=== PATIENT | male | born 1960 | race Caucasian/White ===

== ENCOUNTER → 2024-07-09 | Outpatient (CLI) | payer MEDICARE, OTHER ==
[2024-07-09 17:39] LABS: BASOPHILS ABSOLUTE AUTO 0.11 K/mm3 (0.00-0.23); BASOPHILS PERCENT AUTO 1 % (0-2); EOSINOPHILS ABSOLUTE AUTO 0.45 K/mm3 (0.00-0.68); EOSINOPHILS PERCENT AUTO 5 % (0-6); Hematocrit 38.7 % (37.0-53.0); Hemoglobin 12.5 g/dL (13.5-17.5); IMMATURE GRAN ABSOLUTE AUTO 0.03 K/mm3 (0.00-0.10); IMMATURE GRAN PERCENT AUTO 0 % (0-1); LYMPHOCYTES ABSOLUTE AUTO 1.76 K/mm3 (0.84-5.20); LYMPHOCYTES PERCENT AUTO 18 % (21-46); MONOCYTES ABSOLUTE AUTO 0.77 K/mm3 (0.16-1.47); MONOCYTES PERCENT AUTO 8 % (4-13); Mean Corpuscular HGB 30.5 pg (26.0-34.0); Mean Corpuscular HGB Conc 32.3 g/dL (31.5-36.5); Mean Corpuscular Volume 94 fL (80-100); Mean Platelet Volume 11.2 fL (9.1-12.4); NEUTROPHILS ABSOLUTE AUTO 6.85 K/mm3 (1.96-9.15); NEUTROPHILS PERCENT AUTO 69 % (41-73); Platelet Count 289 K/mm3 (150-400); RDW Coefficient Variation 13.2 % (11.7-14.2); RDW Standard Deviation 45.9 fL (35.1-46.3); White Blood Cell Count 9.97 K/mm3 (4.00-11.30)
[2024-07-09 18:38] LABS: Alanine Aminotransfer (ALT/SGP 37 U/L (12-78); Albumin, Blood 3.7 g/dL (3.4-5.0); Albumin/Globulin Ratio 0.9 (0.8-1.8); Alk Phos 207 U/L (50-136); Anion Gap 11 mmol/L (3-11); Aspartate Aminotrans (AST/SGOT 21 U/L (12-37); Bilirubin, Total 0.3 mg/dL (0.1-1.0); Blood Urea Nitrogen 38 mg/dL (8-24); CO2, Blood 20 mmol/L (21-32); Calcium, Blood 8.6 mg/dL (8.5-10.1); Chloride, Blood 111 mmol/L (98-108); Cholesterol 122 mg/dL (50-200); Creatinine, Blood 1.65 mg/dL (0.60-1.20); Glomerular Filtration Rate 46 (60-); Glucose, Blood 108 mg/dL (70-99); HDL Cholesterol 41 mg/dL (>39); LDL/HDL RATIO 1.3; Low Density Lipoprotein Chol 54 mg/dL (0-110); PSA, %Free 19.9 %; PSA, Free 0.286 ng/mL; Potassium, Blood 4.5 mmol/L (3.5-5.5); Sodium, Blood 137 mmol/L (136-145); Total Protein, Blood 7.7 g/dL (6.4-8.2); Triglycerides 135 mg/dL (30-160); Very Low Density Lipoprot Chol 27 mg/dL (6-32)
== END | disposition home or self-care (01) ==
LOC: LAB 14:30 → LAB SHORT 14:30 → EDSTATUS 07-09 14:20 → LAB FUT 07-09 14:20
PROVIDERS: Nurse Practitioner Family
DX: I10 Essential (primary) hypertension (principal); E78.2 Mixed hyperlipidemia; N40.0 Benign prostatic hyperplasia without lower urinary tract symptoms
CPT/HCPCS: 80053; 80061; 84153; 84154; 85025

== ENCOUNTER → 2024-08-21 | Outpatient (CLI) | payer MEDICARE, OTHER ==
[~2024-08-21] MED LIST: ATOR10 PO; BREZTRI AEROS10.7 GM INH; CEFP200 PO; FOLI1 PO; FURO20 PO; ISOSORBIDE MONO10 MG PO; ISOSORBIDE MONO30 MG PO; METO25ER PO; OMEP20ER PO; OXCARBAZEPINE150 M1 PO; QUET25 PO; VISBIOME 112.51 EACH PO
[2024-08-21 14:09] LABS: BASOPHILS PERCENT AUTO 1 % (0-2); EOSINOPHILS ABSOLUTE AUTO 0.02 K/mm3 (0.00-0.68); EOSINOPHILS PERCENT AUTO 0 % (0-6); Hematocrit 34.1 % (37.0-53.0); Hemoglobin 11.2 g/dL (13.5-17.5); IMMATURE GRAN ABSOLUTE AUTO 0.12 K/mm3 (0.00-0.10); IMMATURE GRAN PERCENT AUTO 1 % (0-1); LYMPHOCYTES ABSOLUTE AUTO 0.79 K/mm3 (0.84-5.20); LYMPHOCYTES PERCENT AUTO 4 % (21-46); MONOCYTES ABSOLUTE AUTO 1.12 K/mm3 (0.16-1.47); MONOCYTES PERCENT AUTO 6 % (4-13); Mean Corpuscular HGB 30.6 pg (26.0-34.0); Mean Corpuscular HGB Conc 32.8 g/dL (31.5-36.5); Mean Corpuscular Volume 93 fL (80-100); Mean Platelet Volume 10.5 fL (9.1-12.4); NEUTROPHILS ABSOLUTE AUTO 17.02 K/mm3 (1.96-9.15); NEUTROPHILS PERCENT AUTO 89 % (41-73); Platelet Count 326 K/mm3 (150-400); RDW Coefficient Variation 13.5 % (11.7-14.2); RDW Standard Deviation 45.6 fL (35.1-46.3); Red Blood Cell Count 3.66 M/mm3 (4.30-5.90); White Blood Cell Count 19.17 K/mm3 (4.00-11.30)
[2024-08-21 14:23] LABS: Albumin/Globulin Ratio 0.6 (0.8-1.8); Bilirubin, Total 0.4 mg/dL (0.1-1.0); Bun/Creatinine Ratio 15.1 (12.0-20.0); Calcium, Blood 9.3 mg/dL (8.5-10.1); Creatinine, Blood 4.31 mg/dL (0.60-1.20); Globulin, Blood 5.2 g/dL (2.2-4.0); Potassium, Blood 4.8 mmol/L (3.5-5.5); Total Protein, Blood 8.2 g/dL (6.4-8.2)
== END | disposition home or self-care (01) ==
LOC: LAB SHORT 14:05 → LAB 14:05
PROVIDERS: Chiropractor
DX: N39.0 Urinary tract infection, site not specified (principal); R07.81 Pleurodynia; R53.1 Weakness
CPT/HCPCS: 80053; 83605; 84484; 85025

== ENCOUNTER 2024-09-14 20:10 | Inpatient (IN) | payer MEDICARE, OTHER ==
[~2024-09-14] VITALS: Ht 180.3 cm; Wt 79.6 kg
[2024-09-14] MEDS ORDERED: NS 1,000 ML IV ONE (20:41)
[2024-09-14] MEDS ORDERED: NS 1,000 ML IV SCH ×2 (20:50→21:50)
[2024-09-14 20:54] LABS: Hematocrit 32.7 % (37.0-53.0); Hemoglobin 10.1 g/dL (13.5-17.5); Mean Corpuscular HGB Conc 30.9 g/dL (31.5-36.5); Mean Corpuscular Volume 95 fL (80-100); NRBC ABSOLUTE 0.00 K/mm3 (0.00-0.02); NRBC Auto 0.0 /100 WBC (0.0-0.2); Platelet Count 228 K/mm3 (150-400); RDW Coefficient Variation 14.2 % (11.7-14.2); RDW Standard Deviation 49.6 fL (35.1-46.3)
[2024-09-14 21:18] LABS: Alanine Aminotransfer (ALT/SGP 90.0 U/L (12-78); Albumin, Blood 2.8 g/dL (3.4-5.0); Albumin/Globulin Ratio 0.7 (0.8-1.8); Anion Gap 10.0 mmol/L (3-11); Aspartate Aminotrans (AST/SGOT 166.0 U/L (12-37); Bilirubin, Total 0.5 mg/dL (0.1-1.0); Blood Urea Nitrogen 48.0 mg/dL (8-24); CO2, Blood 18.0 mmol/L (21-32); Calcium, Blood 7.8 mg/dL (8.5-10.1); Chloride, Blood 119.0 mmol/L (98-108); Creatinine, Blood 2.61 mg/dL (0.60-1.20); Globulin, Blood 4.1 g/dL (2.2-4.0); Glucose, Blood 85.0 mg/dL (70-99); Potassium, Blood 4.9 mmol/L (3.5-5.5); Sodium, Blood 142.0 mmol/L (136-145); Total Protein, Blood 6.9 g/dL (6.4-8.2)
[2024-09-14 21:55] LABS: BAND PERCENT MAN 12 % (0-8); BASOPHILS ABSOLUTE MAN 0.00 K/mm3 (0.00-0.23); BASOPHILS PERCENT MAN 0 % (0-2); EOSINOPHILS ABSOLUTE MAN 0.00 K/mm3 (0.00-0.68); EOSINOPHILS PERCENT MAN 0 % (0-6); LYMPHOCYTES % ATYPICAL MANUAL 1 % (0-0); LYMPHOCYTES ABSOLUTE MAN 0.20 K/mm3 (0.84-5.20); LYMPHOCYTES PERCENT MAN 2 % (21-46); MONOCYTES ABSOLUTE MAN 0.00 K/mm3 (0.16-1.47); MONOCYTES PERCENT MAN 0 % (4-13); NEUTROPHILS ABSOLUTE MAN 6.59 K/mm3 (1.96-9.15); SEG NEUTROPHILS PERCENT MAN 85 % (41-73)
[2024-09-14 22:03] LABS: Source, Urine Foley catheter
[2024-09-14 22:06] LABS: Bilirubin, Urine Neg (Neg); Glucose Qualitative, Urine Neg (Neg); Ketones, Urine Neg (Neg); Leukocyte Esterase, Urine 2+ (Neg); Protein, Urine 2+ (Neg); Specific Gravity, Urine 1.015 (1.003-1.022); Urobilinogen, Urine NORM (Normal)
[2024-09-14 22:21] LABS: Color, Urine Yellow (P-Yellow)
[2024-09-14 22:23] LABS: Red Blood Cells, Urine 0-2 /hpf (0-2); White Blood Cells, Urine 25-50 /hpf (0-5)
[2024-09-14] MEDS ORDERED: Vancomycin (Pharmacy Consult) IV PRN (22:25)
[2024-09-14] MEDS ORDERED: Cefepime HCl 2,000 MG in NS 100 ML IV ONE (22:25)
[2024-09-15] VITALS (17 sets, daily range): BP systolic 83–115; BP diastolic 54–75
[2024-09-15] MEDS ORDERED: Ondansetron HCl 2 MG / ML 2ML Vial IV PRN (00:05)
[2024-09-15] MEDS ORDERED: Sodium Bicarb 8.4% Inj 150 MEQ in Dextrose 5% 1,000 ML IV SCH (00:10)
[2024-09-15] MEDS ORDERED: Ipratropium Bromide INH 0.02% 0.5 mg/2.5ML Vial INH SCH (01:40)
[2024-09-15] MEDS ORDERED: Formoterol/Mometasone MDI 5/200 mcg 13 GM INH SCH (01:40)
[2024-09-15] MEDS ORDERED: Albuterol 2.5 MG/3 ML VIAL INH PRN (01:45)
--- NOTE | 2024-09-15 04:44 | NUR ---
GAS USAGE METER CLERK SUMMARY PT IS A NEW ADMIT FROM THE [facility], ADMITTED FOR UROSEPSIS. PT AAOX4 AND HAS CALLED APPROPIRATELY FOR ASSISTANCE. SOME FORGETFULNESS AND MILD CONFUSION AT TIMES. PT ARRIVED TO ROOM WITH ORDERD ABX INFUSING ALONG WITH SODIUM BICARB. BP'S HAVE BEEN SOFT BUT MAP HAS MAINTAINED >65 WITH MOST RECENT MAP OF 84 WITH MORNING VITALS. BRUCE CATH PLACED IN ED PRIOR TO ARRIVAL. NO SKIN ISSUES NOTED ON INITIAL ASSESSMENT. PT STATES THAT HE LIVES WITH HIS DAUGHTER WHO IS HIS CAREGIVER AND TAKES VERY GOOD CARE OF HIM. PT UNABLE TO PROVIDE LIST OF CURRENT MEDICATIONS AND STATED HE COULD HOPEFULLY GET THEM LATER THIS MORNING WHEN HE SPEAKS TO HIS DAUGHTER SO MED REC IS STILL PENDING AT THIS TIME. PT HAS BEEN SINUS TACH LOW 100'S ON TELE. MEDICATED FOR CHRONIC PAIN X1 WITH TYLENOL. VSS, WCTM.
[2024-09-15 04:58] LABS: Hematocrit 29.7 % (37.0-53.0); Hemoglobin 9.2 g/dL (13.5-17.5); Mean Corpuscular HGB Conc 31.0 g/dL (31.5-36.5); Mean Corpuscular Volume 97 fL (80-100); NRBC ABSOLUTE 0.00 K/mm3 (0.00-0.02); NRBC Auto 0.0 /100 WBC (0.0-0.2); Platelet Count 201 K/mm3 (150-400); RDW Coefficient Variation 14.4 % (11.7-14.2); RDW Standard Deviation 50.6 fL (35.1-46.3)
[2024-09-15 05:21] LABS: BAND PERCENT MAN 29 % (0-8); BASOPHILS ABSOLUTE MAN 0.00 K/mm3 (0.00-0.23); BASOPHILS PERCENT MAN 0 % (0-2); EOSINOPHILS ABSOLUTE MAN 0.00 K/mm3 (0.00-0.68); EOSINOPHILS PERCENT MAN 0 % (0-6); LYMPHOCYTES ABSOLUTE MAN 0.31 K/mm3 (0.84-5.20); LYMPHOCYTES PERCENT MAN 2 % (21-46); METAMYELOCYTE ABSOLUTE MAN 0.46 K/mm3 (0.00-0.00); METAMYELOCYTE PERCENT MAN 3 % (0-0); MONOCYTES ABSOLUTE MAN 0.46 K/mm3 (0.16-1.47); MONOCYTES PERCENT MAN 3 % (4-13); NEUTROPHILS ABSOLUTE MAN 14.26 K/mm3 (1.96-9.15); SEG NEUTROPHILS PERCENT MAN 63 % (41-73)
[2024-09-15 05:30] LABS: Alanine Aminotransfer (ALT/SGP 228.0 U/L (12-78); Albumin, Blood 2.5 g/dL (3.4-5.0); Albumin/Globulin Ratio 0.7 (0.8-1.8); Anion Gap 11.0 mmol/L (3-11); Aspartate Aminotrans (AST/SGOT 269.0 U/L (12-37); Bilirubin, Total 0.5 mg/dL (0.1-1.0); Blood Urea Nitrogen 47.0 mg/dL (8-24); CO2, Blood 18.0 mmol/L (21-32); Calcium, Blood 7.3 mg/dL (8.5-10.1); Chloride, Blood 119.0 mmol/L (98-108); Creatinine, Blood 1.4 mg/dL (0.60-1.20); Globulin, Blood 3.7 g/dL (2.2-4.0); Glucose, Blood 93.0 mg/dL (70-99); Potassium, Blood 4.7 mmol/L (3.5-5.5); Sodium, Blood 143.0 mmol/L (136-145); Total Protein, Blood 6.2 g/dL (6.4-8.2)
[2024-09-15] MEDS ORDERED: NS 1,000 ML IV ONE (07:45)
[2024-09-15] MEDS ORDERED: NS 1,000 ML IV SCH ×2 (08:00→09:00)
[2024-09-15] MEDS ORDERED: Magnesium Sulf 2 GM/Water 50ML 50 ML IV STA (08:53)
[2024-09-15] MEDS ORDERED: Lactobacil 2-S.Thermo-Bifido 1 1 Cap PO SCH (09:00)
[2024-09-15] MEDS ORDERED: Enoxaparin 40 MG/0.4 ML SYR SC SCH (09:00)
[2024-09-15] MEDS ORDERED: Cefepime HCl 1,000 MG in NS 100 ML IV SCH (09:00)
--- NOTE | 2024-09-15 10:09 | NUR ---
PT C/O LEFT SIDED CHEST PAIN 09/19. MACHINE ROOM ENGINEER NOTIFIED. WILL PERFORM AN EKG.
[2024-09-15] MEDS ORDERED: FERSU300 PO (13:01)
[2024-09-15] MEDS ORDERED: ASPI81CH PO (13:04)
--- NOTE | 2024-09-15 15:05 | NUR ---
PATIENT IS ALERT AND ORIENTED AND COOPERATIVE WITH CARE. ON RA. HYPOTENSIVE THIS MORNING, DR. WALLS NOTIFIED AND ORDERS FOR A BOLUS AND MIDODRINE GIVEN. THIS AFTERNOON, HIS BP IS 114/68. LIQUID BM TODAY, HE USED THE BEDPAN WITH 1PA. REFUSED STOOL SOFTENER THIS MORNING. BRUCE IS PATENT AND DRAINING CLEAR YELLOW URINE. C/O KNEE PAIN. WHEELCHAIR BOUND AT BASELINE. UPDATE GIVEN TO THE PATIENT'S DAUGHTER. WILL CONTINUE TO MONITOR
[2024-09-16] VITALS: BP 104/66
[2024-09-16 04:41] VITALS: BP 104/60
[2024-09-16 05:42] LABS: Hematocrit 29.3 % (37.0-53.0); Hemoglobin 9.6 g/dL (13.5-17.5); Mean Corpuscular HGB Conc 32.8 g/dL (31.5-36.5); Mean Corpuscular Volume 93 fL (80-100); NRBC ABSOLUTE 0.00 K/mm3 (0.00-0.02); NRBC Auto 0.0 /100 WBC (0.0-0.2); Platelet Count 204 K/mm3 (150-400); RDW Coefficient Variation 14.7 % (11.7-14.2); RDW Standard Deviation 50.1 fL (35.1-46.3)
--- NOTE | 2024-09-16 06:03 | NUR ---
SHIFT SUMMARY PT SITTING UP IN BED, WATCHING TV. TOOK EVENING MEDICATIONS WITHOUT ISSUE. PT IS PLEASANT AND COOPERATIVE WITH CARE. PT RESTLESS. SLEEPS FOR LESS THAN AN HOUR, THEN IS TOSSING AND TURNING. COMFORT MEASURES OFFERED. PT DECLINED. DURING MIDNIGHT ROUNDING AND VITALS, PT COMPLAINED OF BEING UNCOMFORTABLE. WITH CRIME SCENE SPECIALIST, THIS RN GOT HIM SETTLED BACK INTO BED COMFORTABLY AND HE IS NOW RESTING. DURING 0400 VITALS AND ROUNDING, PT COMPLAINING OF HEART BURN. PROVIDED PT WITH MILK AND JOSE F CRACKERS. REPOSITIONED PT WITH HOB ELEVATED.
[2024-09-16 06:05] LABS: Anion Gap 9.0 mmol/L (3-11); Blood Urea Nitrogen 46.0 mg/dL (8-24); CO2, Blood 19.0 mmol/L (21-32); Calcium, Blood 7.8 mg/dL (8.5-10.1); Chloride, Blood 119.0 mmol/L (98-108); Creatinine, Blood 2.47 mg/dL (0.60-1.20); Glucose, Blood 73.0 mg/dL (70-99); Magnesium, Blood 1.7 mg/dL (1.6-2.4); Potassium, Blood 4.4 mmol/L (3.5-5.5); Sodium, Blood 143.0 mmol/L (136-145)
[2024-09-16 07:30] VITALS: BP 129/76
[2024-09-16] MEDS ORDERED: NS 1,000 ML IV SCH (08:00)
[2024-09-16 11:55] VITALS: BP 140/73
--- NOTE | 2024-09-16 16:28 | NUR ---
SHIFT SUMMARY PATIENT IS AOX3-4. ABLE TO TURN SELF/MOVE INDEPENDENTLY IN BED. W/C AT BASELINE. USES BEPAN SEVERAL TIMES WITH LOOSE STOOLS. BED BATH COMPLETE TODAY. IVF RUNNING @125. BRUCE IN PLACE DRAINING TO GRAVITY. TOELRATING PO INTAKE DENIES N/V. VSS. USES CALL LIGHT.
[2024-09-16 17:16] VITALS: BP 158/85
--- NOTE | 2024-09-16 18:20 | NUR ---
TRANSFER REPORT TO CARSON LUEVANO, TO ASSUME CARE PATIENT TRANSFERRED TO ROOM 337. MEDICAL STATUS NO TELE.
--- NOTE | 2024-09-16 18:32 | NUR ---
REPORT RECIEVED FROM BASSEM JARQUIN. PT TRANSFERRED TO MEDICAL FLOOR FROM PCU AT APPROX 1825. PT ORIENTED TO ROOM AND CALL SYSTEM. NS RUNNING 125 ML/HR. BRUCE CATHETER PATENT AND DRAINING CLEAR YELLOW URINE. WATER AND PEPSI PROVIDED. PT DENIES PAIN, A/Ox4, ABLE TO MAKE NEEDS KNOWN. PT CURRENTLY RESTING IN BED WITH BED IN LOWEST POSITION AND CALL LIGHT WITHIN REACH. WILL PROVIDE REPORT TO NOC SHIFT NURSE.
[2024-09-17] VITALS (19 sets, daily range): BP systolic 91–163; BP diastolic 64–103
[2024-09-17] MEDS ORDERED: Morphine Sulfate 4 MG/1 ML Injection IV ONE (02:55)
[2024-09-17] MEDS ORDERED: Morphine Sulfate 4 MG/1 ML Injection ONE (02:57)
[2024-09-17] MEDS ORDERED: Ondansetron HCl 2 MG / ML 2ML Vial ONE (03:07)
[2024-09-17] MEDS ORDERED: Albuterol HFA200 ACT/6.7 GM INH INH PRN (03:10)
[2024-09-17] MEDS ORDERED: Ondansetron HCl 2 MG / ML 2ML Vial IV ONE (03:10)
[2024-09-17 03:21] LABS: Hematocrit 32.0 % (37.0-53.0); Hemoglobin 10.4 g/dL (13.5-17.5); Mean Corpuscular HGB Conc 32.5 g/dL (31.5-36.5); Mean Corpuscular Volume 93 fL (80-100); NRBC ABSOLUTE 0.00 K/mm3 (0.00-0.02); NRBC Auto 0.0 /100 WBC (0.0-0.2); Platelet Count 260 K/mm3 (150-400); RDW Coefficient Variation 14.7 % (11.7-14.2); RDW Standard Deviation 49.9 fL (35.1-46.3)
[2024-09-17 03:21] LABS: pH Blood Venous 7.34 (7.34-7.37)
--- NOTE | 2024-09-17 03:26 | NUR ---
CALLED TO ROOM BY PRIMARY RN. PT COMPLAINS OF SEVERE CHEST PAIN LEFT SIDE. CLUTCHING HIS CHEST, GRUNTING WITH RESPIRATIONS. DIABETOLOGIST INTIATED. PT PLACED ON 02 4MG MORPHINE GIVEN, AND NITRO 0.4 SL X 3. PT STATES CHEST PAIN HAS DECREASED TO 3/10. PT STATES THAT HE HAS HAD SIMILAR CHEST PAIN WHEREAS AT HOME HE HAS NEEDED NITRO FOR RELIEF. DR RYAN TO ROOM. ORDERS RECEIVED. PT TRANSFERRED TO ICU UNDER PCU STATUS.
[2024-09-17 03:41] LABS: Anion Gap 9.0 mmol/L (3-11); Blood Urea Nitrogen 38.0 mg/dL (8-24); CO2, Blood 18.0 mmol/L (21-32); Calcium, Blood 8.3 mg/dL (8.5-10.1); Chloride, Blood 119.0 mmol/L (98-108); Creatinine, Blood 2.27 mg/dL (0.60-1.20); Glucose, Blood 109.0 mg/dL (70-99); Potassium, Blood 4.4 mmol/L (3.5-5.5); Sodium, Blood 142.0 mmol/L (136-145)
--- NOTE | 2024-09-17 03:48 | NUR ---
TRANSFER NOTE C/O SEVERE LEFT SIDE CHEST PAIN. MULTIPLE ATTEMPTS TO COUGH UP PHLEGM. BP AND PULSE ELEVATED. RAPID CALLED. PT RECEIVED 3 DOSES OF NITRO SL. PAIN DECREASED BUT CONTINUED. SEVERE ANXIETY. MD AT BEDSIDE AGREED THAT PT NEEDED TO BE SENT TO ICU. PT TRANSPORTED TO ICU 2. ICU NURSE GIVEN REPORT. SEE DOC FLOW SHEETS RE VS, ETC.
[2024-09-17] MEDS ORDERED: NS 1,000 ML IV SCH (09:00)
[2024-09-17] MEDS ORDERED: CefTRIAXone Sodium 1,000 MG in NS 100 ML IV SCH (09:00)
--- NOTE | 2024-09-17 09:06 | NUR ---
AM NOTE... ASSUMED CARE OF PT AT 0700, PT IS A&Ox3 WITH SOME CONFUSION AND FIXATION ON CERTIAN SUBJECTS LIKE HIS CELL PHONE AND HIS INHALERS. PT DENIES CHEST PAIN/PRESSURE OR SOB. PT IS IN SR IN THE 80'S BP IS STABLE WITH MAPS>65. PT IS ON RA WITH O2 SATS>90% L/S CLEAR AND DIM IN THE UPPER LOBES COARSE AND DIM IN THE LOWER LOBES. BT ARE PRESENT AND HYPERACTIVE, ABD IS SOFT AND NONTENDER TO PALPATION. PT IS W/C BOUND AT BASELINE.
[2024-09-17 09:13] LABS: HEPATITIS A ANTIBODY, IGM Negative (Negative); HEPATITIS C AB CIA INTERP Negative (Negative); HEPATITIS C ANTIBODY CIA INDEX 0.17 IV
[2024-09-17] MEDS ORDERED: Mag Hydrox/Al Hydrox/Simeth 72 ML,Lidocaine 2% Viscous Soln 36 ML,Atropine/Scopalam/Hyo... PO PRN (10:20)
--- NOTE | 2024-09-17 15:53 | NUR ---
PT TO NM.... PT TO NM FOR VQ SCAN AT 1550. PT'S VS STABLE. PT'S DAUGHTER AT THE BEDSIDE, SHE WAS UPDATED ON THE PT'S CONDITION AND PLAN OF CARE.
--- NOTE | 2024-09-17 17:35 | NUR ---
SHIFT SUMMARY.... NO ACUTE NEGATIV CHANGES NOTED THIS SHIFT. PT'S VS HAVE BEEN STABLE. PT HAS DENIED CHEST PAIN ALL SHIFT. PT CONTINUES TO BE ON RA WITH O2 SATS>95%. PT'S BRUCE IS PATENT AND DRAINING LIGHT YELLOW CLOUDY URINE TO GRAVITY. PT HAS NOT HAD A BM THIS SHIFT. PT WENT TO [facility] FOR [facility], PT TOLERATED THE TRANSFER AND SCAN WELL. PT'S DAUGHTER AT THE BEDSIDE SHE WAS UPDATED ON THE PT'S CONDITION AND PLAN OF CARE, PT'S DAUGHTER SPOKE ON THE PHONE WITH THE THE PROVIDER.
[2024-09-18 03:09] VITALS: BP 170/94
[2024-09-18 03:20] LABS: Hematocrit 29.0 % (37.0-53.0); Hemoglobin 9.3 g/dL (13.5-17.5); Mean Corpuscular HGB Conc 32.1 g/dL (31.5-36.5); Mean Corpuscular Volume 93 fL (80-100); NRBC ABSOLUTE 0.00 K/mm3 (0.00-0.02); NRBC Auto 0.0 /100 WBC (0.0-0.2); Platelet Count 241 K/mm3 (150-400); RDW Coefficient Variation 14.4 % (11.7-14.2); RDW Standard Deviation 48.4 fL (35.1-46.3)
[2024-09-18 03:41] LABS: Anion Gap 7.0 mmol/L (3-11); Blood Urea Nitrogen 30.0 mg/dL (8-24); CO2, Blood 24.0 mmol/L (21-32); Calcium, Blood 8.4 mg/dL (8.5-10.1); Chloride, Blood 115.0 mmol/L (98-108); Creatinine, Blood 2.07 mg/dL (0.60-1.20); Glucose, Blood 93.0 mg/dL (70-99); Potassium, Blood 4.5 mmol/L (3.5-5.5); Sodium, Blood 141.0 mmol/L (136-145)
--- NOTE | 2024-09-18 06:03 | NUR ---
SHIFT SUMMARY: NO EVENTS OVERNIGHT. PT COMPLAINS OF GENERAL CHRONIC PAIN, BUT NO EPISODES OF CHEST PAIN. NO C/O DYSPNEA. VITALS SIGNS HAVE REMAINS WNL. URINE OUTPUT IS GOOD WITH BRUCE CATHETER IN PLACE. NO ACUTE CHANGES IN CONDITION.
[2024-09-18 08:00] VITALS: BP 162/84
[2024-09-18] MEDS ORDERED: Folic Acid 1 MG TAB PO SCH (09:00)
[2024-09-18] MEDS ORDERED: BREZTRI INH SCH (09:00)
[2024-09-18] MEDS ORDERED: Isosorbide Mononitrate 30 MG TABCR PO SCH (09:00)
[2024-09-18 12:24] VITALS: BP 128/82
[2024-09-18 16:20] VITALS: BP 134/78
--- NOTE | 2024-09-18 16:22 | NUR ---
SHIFT SUMMARY PT A/O X3, AFEBRILE. NSR 60S-70S, BP WITHIN PARAMETERS. O2 SAT >94% ON RA. EASY TO CHEW DIET WITH ADEQUATE INTAKE. BM X1. BRUCE DISCONTINUED AT 1230, PT HAS VOIDED SINCE REMOVAL. PIV X2. WORKED WITH PT AND OT THIS SHIFT. PT RECOMMENDS KEEPING PT MOBILE WITH LIFT VS STAND/PIVOT FOR NOW. [facility] [employer] UPDATED. PT MEDICAL STATUS WITHOUT TELEMETRY - AWAITING BED AVAILABILITY.
[2024-09-18 20:41] VITALS: BP 147/81
[2024-09-19 00:40] VITALS: BP 135/88
--- NOTE | 2024-09-19 00:59 | NUR ---
PT ARRIVED FROM ICU TO THE MEDICAL FLOOR @0040. REPORT WAS RECEIVED BY BREAK NURSE PILI Parr RN. PT WAS TRANSFERRED TO THE HOSPITAL BED WITH A SLIDING SHEET AND ASSISTED WITH 4 STAFF MEMBERS. PT IS A LIFT PT AT THIS TIME, BASELINE IS W/C, STAND/PIVOT. PT BROUGHT ALL HIS BELONINGS WITH HIM. A/O X4. DENIES CP/PRESSURE UPON ARRIVAL. ON RA. NO TELE ORDER, WAS D/C'D. EDUCATED INFORMATION SECURITY SYSTEMS INSTRUCTOR LIGHT. FOUR RAILS UP PER PT REQUEST, HX TBI. LE'S SPASM INVOLUNTARILY PER PT REPORT. BED AT THE LOWEST POSITION, CALL LIGHT W/I REACH. PT IS ABLE TO MAKE HIS NEEDS KNOWN AND IS PLEASANT AND COOPERATIVE WITH CARE. URINAL BY THE BEDSIDE.
[2024-09-19 04:44] VITALS: BP 142/84
[2024-09-19 06:59] LABS: Anion Gap 10.0 mmol/L (3-11); Blood Urea Nitrogen 29.0 mg/dL (8-24); CO2, Blood 22.0 mmol/L (21-32); Calcium, Blood 8.6 mg/dL (8.5-10.1); Chloride, Blood 114.0 mmol/L (98-108); Creatinine, Blood 2.01 mg/dL (0.60-1.20); Glucose, Blood 84.0 mg/dL (70-99); Potassium, Blood 4.3 mmol/L (3.5-5.5); Sodium, Blood 142.0 mmol/L (136-145)
[2024-09-19 07:28] VITALS: BP 139/82
[2024-09-19 16:14] VITALS: BP 116/67
--- NOTE | 2024-09-19 19:18 | NUR ---
DAY SUMMARY NO CHANGES OF ANY KIND THIS SHIFT, VSS, BEDRESTING, REPORTED TO BENSON TO ASSUME CARE
[2024-09-19 20:17] VITALS: BP 128/76
--- NOTE | 2024-09-20 03:19 | NUR ---
SHIFT SUMMARY NO ACUTE EVENTS DURING THIS SHIFT. PT VOIDING WELL, URINE IS LIGHT YELLOW IN COLOR. PT DENIES PAIN AND DISCOMFORT DURING THIS SHIFT. BED AT THE LOWEST POSITION, CALL LIGHT W/I REACH. FOUR RAILS UP PER PT REPORT. PT REPORTS HAD RECENT FALLS AT HOME AND WANTS THE FOUR RAILS UP. PT IS ABLE TO MAKE HIS NEEDS KNOWN, IS COOPERATIVE WITH CARE, PLEASANT.
[2024-09-20 05:19] VITALS: BP 125/83
[2024-09-20 07:47] VITALS: BP 131/97
[2024-09-20] MEDS ORDERED: CEPH500 PO (11:40)
[2024-09-20 11:54] VITALS: BP 98/68
[2024-09-20 11:56] VITALS: BP 99/69
[2024-09-20 16:01] VITALS: BP 131/80
--- NOTE | 2024-09-20 17:42 | NUR ---
DISCHARGE REVIEWED WITH PT AND DAUGHTER. IV PULLED BY AIDE. PT VERVALIZED UNDERSTANDING MEDS AND INST. PT LOADED SELF TO WHEELCHAIR. PT WHEELED TO DOOR BY DAUGHTER, CAREGIVER. LEFT AT 1743
== END 2024-09-20 18:32 | disposition home health service (06) | DRG 871 ==
LOC: ER 20:10 → PCU 09-15 00:01 → ICUE 09-15 00:01 → MEDS 09-15 00:01 → PCU 09-15 01:12 → MEDS 09-16 18:20 → ICUE 09-17 03:15 → MEDS 09-19 00:40
PROVIDERS: Internal Medicine; Student in an Organized Health Care Education/Training Program; ADMIT Student in an Organized Health Care Education/Training Program
PROC: 3E03329 Introduction of Other Anti-infective into Peripheral Vein, Percutaneous Approach (ICD-10-PCS; principal; 2024-09-15)
PROC: 3E033XZ Introduction of Vasopressor into Peripheral Vein, Percutaneous Approach (ICD-10-PCS; 2024-09-15)
PROC: 0T9B70Z Drainage of Bladder with Drainage Device, Via Natural or Artificial Opening (ICD-10-PCS; 2024-09-15)
DX: A41.51 Sepsis due to Escherichia coli [E. coli] (principal); G92.8 Other toxic encephalopathy; J18.9 Pneumonia, unspecified organism; N39.0 Urinary tract infection, site not specified; J44.0 Chronic obstructive pulmonary disease with (acute) lower respiratory infection; N17.9 Acute kidney failure, unspecified; E87.20 Acidosis, unspecified; Z99.3 Dependence on wheelchair; N18.31 Chronic kidney disease, stage 3a; F10.20 Alcohol dependence, uncomplicated; K21.9 Gastro-esophageal reflux disease without esophagitis; N28.1 Cyst of kidney, acquired; I12.9 Hypertensive chronic kidney disease with stage 1 through stage 4 chronic kidney disease, or unspecified chronic kidney disease; E78.5 Hyperlipidemia, unspecified; Z87.891 Personal history of nicotine dependence; Z88.2 Allergy status to sulfonamides; Z79.899 Other long term (current) drug therapy; D63.1 Anemia in chronic kidney disease; N20.0 Calculus of kidney; R65.20 Severe sepsis without septic shock; R74.01 Elevation of levels of liver transaminase levels; Z87.820 Personal history of traumatic brain injury
CPT/HCPCS: 36415; 51702; 71045; 76700; 78582; 80048; 80053; 80074; 81001; 82803; 82947; 83605; 83735; 83880; 84484; 85025; 85027; 85379; 87040; 87077; 87086; 87186; 93005; 93010; 94640; 94664; 94760; 94762; 96361-59; 96365-59; 97110; 97162; 97165; 97530; 97535; 99285-25; A9270; A9540; J0456; J0692; J0696; J1650; J2270; J2405; J3373; J3475; J7030; J7040; J7050; J7060; J7070

== ENCOUNTER → 2024-10-08 | Outpatient (CLI) | payer MEDICARE, OTHER ==
[~2024-10-08] MED LIST changes: +ASPI81CH PO; +CEPH500 PO; +FERSU300 PO
[2024-10-08 18:46] LABS: Anion Gap 8.0 mmol/L (3-11); Blood Urea Nitrogen 26.0 mg/dL (8-24); CO2, Blood 20.0 mmol/L (21-32); Calcium, Blood 8.9 mg/dL (8.5-10.1); Chloride, Blood 117.0 mmol/L (98-108); Creatinine, Blood 1.61 mg/dL (0.60-1.20); Glucose, Blood 109.0 mg/dL (70-99); Potassium, Blood 4.9 mmol/L (3.5-5.5); Sodium, Blood 140.0 mmol/L (136-145)
== END ==
LOC: LAB 16:00 → LAB SHORT 16:00
PROVIDERS: Nurse Practitioner Family
DX: A41.9 Sepsis, unspecified organism (principal); N39.0 Urinary tract infection, site not specified; N17.9 Acute kidney failure, unspecified
CPT/HCPCS: 80048

== ENCOUNTER 2025-01-07 13:55 | Inpatient (IN) | payer MEDICARE, OTHER ==
[~2025-01-07] VITALS: Ht 182.9 cm; Wt 75.8 kg
[2025-01-07 14:29] LABS: BASOPHILS ABSOLUTE AUTO 0.11 K/mm3 (0.00-0.23); BASOPHILS PERCENT AUTO 1 % (0-2); EOSINOPHILS ABSOLUTE AUTO 0.33 K/mm3 (0.00-0.68); EOSINOPHILS PERCENT AUTO 3 % (0-6); Hematocrit 40.4 % (37.0-53.0); Hemoglobin 13.2 g/dL (13.5-17.5); IMMATURE GRAN ABSOLUTE AUTO 0.03 K/mm3 (0.00-0.10); IMMATURE GRAN PERCENT AUTO 0 % (0-1); LYMPHOCYTES ABSOLUTE AUTO 1.80 K/mm3 (0.84-5.20); LYMPHOCYTES PERCENT AUTO 15 % (21-46); MONOCYTES ABSOLUTE AUTO 0.76 K/mm3 (0.16-1.47); MONOCYTES PERCENT AUTO 7 % (4-13); Mean Corpuscular HGB Conc 32.7 g/dL (31.5-36.5); Mean Corpuscular Volume 95 fL (80-100); NEUTROPHILS ABSOLUTE AUTO 8.75 K/mm3 (1.96-9.15); NEUTROPHILS PERCENT AUTO 74 % (41-73); NRBC ABSOLUTE 0.00 K/mm3 (0.00-0.02); NRBC Auto 0.0 /100 WBC (0.0-0.2); Platelet Count 242 K/mm3 (150-400); RDW Coefficient Variation 13.8 % (11.7-14.2); RDW Standard Deviation 48.0 fL (35.1-46.3)
[2025-01-07 15:43] LABS: Alanine Aminotransfer (ALT/SGP 45.0 U/L (12-78); Albumin, Blood 4.0 g/dL (3.4-5.0); Albumin/Globulin Ratio 1.1 (0.8-1.8); Anion Gap 6.0 mmol/L (3-11); Aspartate Aminotrans (AST/SGOT 22.0 U/L (12-37); Bilirubin, Total 0.2 mg/dL (0.1-1.0); Blood Urea Nitrogen 29.0 mg/dL (8-24); CO2, Blood 24.0 mmol/L (21-32); Calcium, Blood 9.0 mg/dL (8.5-10.1); Chloride, Blood 113.0 mmol/L (98-108); Creatinine, Blood 1.52 mg/dL (0.60-1.20); Globulin, Blood 3.7 g/dL (2.2-4.0); Glucose, Blood 92.0 mg/dL (70-99); Potassium, Blood 5.6 mmol/L (3.5-5.5); Sodium, Blood 137.0 mmol/L (136-145); Total Protein, Blood 7.7 g/dL (6.4-8.2)
[2025-01-07 16:40] LABS: Source, Urine Clean Catch
[2025-01-07 16:49] LABS: Bilirubin, Urine Neg (Neg); Color, Urine Yellow (P-Yellow); Glucose Qualitative, Urine Neg (Neg); Ketones, Urine Neg (Neg); Leukocyte Esterase, Urine 2+ (Neg); Protein, Urine 1+ (Neg); Specific Gravity, Urine 1.020 (1.003-1.022); Urobilinogen, Urine NORM (Normal)
[2025-01-07] MEDS ORDERED: FentaNYL Citrate 50 MCG/ML 2 ML Injection IV ONE (17:00)
[2025-01-07 17:06] LABS: Red Blood Cells, Urine 0-2 /hpf (0-2); White Blood Cells, Urine 25-50 /hpf (0-5)
[2025-01-07] MEDS ORDERED: CefTRIAXone Sodium 1,000 MG in NS 100 ML IV ONE (18:50)
[2025-01-07] MEDS ORDERED: NS 1,000 ML IV SCH ×2 (19:05→19:40)
[2025-01-07] MEDS ORDERED: Tiotropium Bromide 2.5 MCG/ACT MIST INHAL (10 ACT/4 GM) INH SCH (19:45)
[2025-01-07] MEDS ORDERED: Albuterol 2.5 MG/3 ML VIAL INH PRN (19:45)
[2025-01-07] MEDS ORDERED: FLU VACC TS2025(65UP)/MF59C/PF 45 MCG/0.5 ML SYRINGE IM SCH (19:45)
[2025-01-07] MEDS ORDERED: Ondansetron HCl 2 MG / ML 2ML Vial IV PRN (19:50)
[2025-01-07] MEDS ORDERED: OxyCODONE 5 mg/Acetamin 325 mg TABLET PO PRN (19:50)
[2025-01-07] MEDS ORDERED: Formoterol/Mometasone MDI 5/200 mcg 13 GM INH SCH (19:55)
[2025-01-07 22:01] VITALS: BP 161/109
[2025-01-08] VITALS (12 sets, daily range): BP systolic 82–139; BP diastolic 58–80
--- NOTE | 2025-01-08 04:32 | NUR ---
SHIFT SUMMARY PATIENT IS ALERT AND ORIENTED. PATIENT HAS HAD NO ACUTE EVENTS THIS SHIFT. VITAL SIGNS REVIEWED. PATIENT WAS ADMITTED FOR NEPHROLITHIASIS. PATIENT HAS REPORTED PAIN THIS SHIFT AND MEDICATED PER EMAR. PATIENT HAS NO COMPLAINTS OF SOB, NAUSEA OR VOMITTING THIS SHIFT. PATIENT HAS BEEN NPO FOR STENT PLACEMENT. BED IN LOCKED AND LOWEST POSITION. CALL LIGHT IN PLACE.
[2025-01-08 05:25] LABS: BASOPHILS ABSOLUTE AUTO 0.10 K/mm3 (0.00-0.23); BASOPHILS PERCENT AUTO 1 % (0-2); EOSINOPHILS ABSOLUTE AUTO 0.43 K/mm3 (0.00-0.68); EOSINOPHILS PERCENT AUTO 4 % (0-6); Hematocrit 37.9 % (37.0-53.0); Hemoglobin 12.0 g/dL (13.5-17.5); IMMATURE GRAN ABSOLUTE AUTO 0.03 K/mm3 (0.00-0.10); IMMATURE GRAN PERCENT AUTO 0 % (0-1); LYMPHOCYTES ABSOLUTE AUTO 2.25 K/mm3 (0.84-5.20); LYMPHOCYTES PERCENT AUTO 20 % (21-46); MONOCYTES ABSOLUTE AUTO 0.90 K/mm3 (0.16-1.47); MONOCYTES PERCENT AUTO 8 % (4-13); Mean Corpuscular HGB Conc 31.7 g/dL (31.5-36.5); Mean Corpuscular Volume 96 fL (80-100); NEUTROPHILS ABSOLUTE AUTO 7.57 K/mm3 (1.96-9.15); NEUTROPHILS PERCENT AUTO 67 % (41-73); NRBC ABSOLUTE 0.00 K/mm3 (0.00-0.02); NRBC Auto 0.0 /100 WBC (0.0-0.2); Platelet Count 198 K/mm3 (150-400); RDW Coefficient Variation 13.6 % (11.7-14.2); RDW Standard Deviation 48.1 fL (35.1-46.3)
[2025-01-08 05:50] LABS: Anion Gap 9.0 mmol/L (3-11); Blood Urea Nitrogen 27.0 mg/dL (8-24); CO2, Blood 22.0 mmol/L (21-32); Calcium, Blood 8.6 mg/dL (8.5-10.1); Chloride, Blood 114.0 mmol/L (98-108); Creatinine, Blood 1.57 mg/dL (0.60-1.20); Glucose, Blood 77.0 mg/dL (70-99); Potassium, Blood 5.2 mmol/L (3.5-5.5); Sodium, Blood 140.0 mmol/L (136-145)
[2025-01-08] MEDS ORDERED: Isosorbide Mononitrate 30 MG TABCR PO SCH (09:00)
--- NOTE | 2025-01-08 11:28 | NUR ---
PATIENT TO OR FOR STENT PLACEMENTS JUST NOW, NPO SINCE MIDNIGHT
[2025-01-08] MEDS ORDERED: Midazolam HCl 1MG / ML 2ML Vial ONE (12:08)
[2025-01-08] MEDS ORDERED: FentaNYL Citrate 50 MCG/ML 2 ML Injection ONE (12:14)
[2025-01-08] MEDS ORDERED: Phenylephrine HCl 100 MCG/ML-NS 10MLSYR (1MG/10ML) ONE (12:14)
[2025-01-08] MEDS ORDERED: Ondansetron HCl 2 MG / ML 2ML Vial ONE (12:16)
[2025-01-08] MEDS ORDERED: Dexamethasone Sod Phos 10 MG/ML 1ML VIAL ONE (12:16)
--- NOTE | 2025-01-08 12:26 | NUR ---
01/08/25 1226 Ebony Rinaldi PATIENT IS ON SCHEDULED ANTIBIOTICS, NO ADDITIONAL PREOPERATIVE ANTIBIOTICS ORDERED.
--- NOTE | 2025-01-08 16:16 | NUR ---
URETHRAL STENT PLACED TODAY, PATINET ALERT AND ORIENTED, CONFUSED AND NON COOPERATIVE AT TIMES. INDEPEDANT WITH BSU AND BED QUINTERO, REFUSED 4PM VITAL SIGNS, REGULAR DIET, TESSIE WOLFE, CALL LIGHT WITH IN REACH, WILL RELAY TO PM RN
[2025-01-08] MEDS ORDERED: CefTRIAXone Sodium 1,000 MG in NS 100 ML IV SCH (21:00)
--- NOTE | 2025-01-09 04:13 | NUR ---
SHIFT SUMMARY PATIENT HAD NO ACUTE CHANGES. ALERT ORIENTED AND TWO ASSIST TO BSC. DENIES CHEST PAIN, SOB, AND N/V. VSS/AFEBRILE. URINE HAS BEEN RED WITH CLOT EARLIER IN SHIFT. PIV INTACT. NS INFUSING @ 100 mL/HR. REPORTED KNEE PAIN AND PERCOCET GIVEN PER EMAR. CALL LIGHT IN REACH. BED IN LOWEST POSITION. WILL CONTINUE TO MONITOR UNTIL DAY SHIFT NURSE ASSUMES CARE.
[2025-01-09 05:08] VITALS: BP 134/86
[2025-01-09 05:34] LABS: BASOPHILS ABSOLUTE AUTO 0.06 K/mm3 (0.00-0.23); BASOPHILS PERCENT AUTO 1 % (0-2); EOSINOPHILS ABSOLUTE AUTO 0.07 K/mm3 (0.00-0.68); EOSINOPHILS PERCENT AUTO 1 % (0-6); Hematocrit 34.1 % (37.0-53.0); Hemoglobin 10.8 g/dL (13.5-17.5); IMMATURE GRAN ABSOLUTE AUTO 0.03 K/mm3 (0.00-0.10); IMMATURE GRAN PERCENT AUTO 0 % (0-1); LYMPHOCYTES ABSOLUTE AUTO 1.67 K/mm3 (0.84-5.20); LYMPHOCYTES PERCENT AUTO 13 % (21-46); MONOCYTES ABSOLUTE AUTO 0.88 K/mm3 (0.16-1.47); MONOCYTES PERCENT AUTO 7 % (4-13); Mean Corpuscular HGB Conc 31.7 g/dL (31.5-36.5); Mean Corpuscular Volume 97 fL (80-100); NEUTROPHILS ABSOLUTE AUTO 9.95 K/mm3 (1.96-9.15); NEUTROPHILS PERCENT AUTO 79 % (41-73); NRBC ABSOLUTE 0.00 K/mm3 (0.00-0.02); NRBC Auto 0.0 /100 WBC (0.0-0.2); Platelet Count 207 K/mm3 (150-400); RDW Coefficient Variation 13.4 % (11.7-14.2); RDW Standard Deviation 47.5 fL (35.1-46.3)
[2025-01-09 05:54] LABS: Anion Gap 9.0 mmol/L (3-11); Blood Urea Nitrogen 32.0 mg/dL (8-24); CO2, Blood 22.0 mmol/L (21-32); Calcium, Blood 8.2 mg/dL (8.5-10.1); Chloride, Blood 115.0 mmol/L (98-108); Creatinine, Blood 1.92 mg/dL (0.60-1.20); Glucose, Blood 102.0 mg/dL (70-99); Potassium, Blood 5.8 mmol/L (3.5-5.5); Sodium, Blood 140.0 mmol/L (136-145)
[2025-01-09] MEDS ORDERED: Furosemide 10 MG / ML 2ML Vial IV ONE (07:25)
[2025-01-09 07:28] VITALS: BP 151/90
[2025-01-09 07:29] VITALS: BP 151/90
[2025-01-09] MEDS ORDERED: Sodium Bicarb 8.4% Inj 150 MEQ in Dextrose 5% 1,000 ML IV SCH (08:30)
[2025-01-09] MEDS ORDERED: Folic Acid 1 MG TAB PO SCH (09:00)
[2025-01-09 10:53] LABS: Albumin, Blood 3.4 g/dL (3.4-5.0); Anion Gap 10 mmol/L (3-11); Blood Urea Nitrogen 32 mg/dL (8-24); CO2, Blood 22 mmol/L (21-32); Calcium, Blood 8.3 mg/dL (8.5-10.1); Chloride, Blood 114 mmol/L (98-108); Creatinine, Blood 1.98 mg/dL (0.60-1.20); Glucose, Blood 126 mg/dL (70-99); Phosphorus, Blood 2.1 mg/dL (2.5-4.9); Potassium, Blood 4.6 mmol/L (3.5-5.5); Sodium, Blood 141 mmol/L (136-145)
[2025-01-09] MEDS ORDERED: AMOX-CLAV 875-1 EAC1 PO (12:15)
[2025-01-09] MEDS ORDERED: TAMS.4ER PO (12:15)
[2025-01-09] MEDS ORDERED: LOKELMA10 GM PO (12:16)
== END 2025-01-09 18:15 | disposition home or self-care (01) | DRG 660 ==
LOC: ER 13:55 → MEDS 19:39 → ENPENDDIS 01-09 11:44 → MEDS 01-09 18:15
PROVIDERS: Emergency Medicine; Nurse Practitioner Acute Care; Physician Assistant; Urology; ADMIT Internal Medicine
PROC: 3E03329 Introduction of Other Anti-infective into Peripheral Vein, Percutaneous Approach (ICD-10-PCS; 2025-01-07)
PROC: 0T778DZ Dilation of Left Ureter with Intraluminal Device, Via Natural or Artificial Opening Endoscopic (ICD-10-PCS; principal; 2025-01-08 12:00)
DX: N20.0 Calculus of kidney (principal); N39.0 Urinary tract infection, site not specified; N18.30 Chronic kidney disease, stage 3 unspecified; J44.9 Chronic obstructive pulmonary disease, unspecified; K21.9 Gastro-esophageal reflux disease without esophagitis; G40.909 Epilepsy, unspecified, not intractable, without status epilepticus; E87.5 Hyperkalemia; E78.5 Hyperlipidemia, unspecified; R74.8 Abnormal levels of other serum enzymes; B96.20 Unspecified Escherichia coli [E. coli] as the cause of diseases classified elsewhere; F10.21 Alcohol dependence, in remission; F17.210 Nicotine dependence, cigarettes, uncomplicated; I12.9 Hypertensive chronic kidney disease with stage 1 through stage 4 chronic kidney disease, or unspecified chronic kidney disease; D63.1 Anemia in chronic kidney disease; Z87.820 Personal history of traumatic brain injury; Z79.51 Long term (current) use of inhaled steroids; Z99.3 Dependence on wheelchair; Z88.2 Allergy status to sulfonamides; Z79.82 Long term (current) use of aspirin
CPT/HCPCS: 36415; 74177; 80048; 80053; 80069; 81001; 83605; 83690; 84132; 85025; 87077; 87086; 87186; 93005; 93010; 94640; 94664; 94760; 96374-59; 96375; 99285-25; A9270; C1769; C2617; J0696; J1100; J1938; J2250; J2371; J2405; J2704; J3010; J7030; J7070; J7120; Q9967

== ENCOUNTER → 2025-01-14 | Outpatient (CLI) | payer MEDICARE, OTHER ==
[~2025-01-14] MED LIST changes: +AMOX-CLAV 875-1 EAC1 PO; +LOKELMA10 GM PO; +TAMS.4ER PO
[2025-01-14 19:20] LABS: Albumin, Blood 3.6 g/dL (3.4-5.0); Anion Gap 6 mmol/L (3-11); Blood Urea Nitrogen 20 mg/dL (8-24); CO2, Blood 27 mmol/L (21-32); Calcium, Blood 8.7 mg/dL (8.5-10.1); Chloride, Blood 111 mmol/L (98-108); Creatinine, Blood 1.50 mg/dL (0.60-1.20); Glucose, Blood 91 mg/dL (70-99); Phosphorus, Blood 2.5 mg/dL (2.5-4.9); Potassium, Blood 3.6 mmol/L (3.5-5.5); Sodium, Blood 140 mmol/L (136-145)
== END ==
LOC: LAB SHORT 16:16 → LAB 16:16
PROVIDERS: Nurse Practitioner Family
DX: E87.5 Hyperkalemia (principal)
CPT/HCPCS: 80069